=== PATIENT | female | born 1955 | race African-American/Black ===

== ENCOUNTER 2016-11-05 11:19 | Emergency (ER) | payer MEDICAID ==
[~2016-11-05] VITALS: Ht 157.5 cm; Wt 57.6 kg
[2016-11-05 11:42] VITALS: BP 112/60
== END 2016-11-05 16:31 | disposition home or self-care (01) ==
LOC: ER 11:20
DX: G89.29 Other chronic pain (principal); M54.5 Low back pain; Z76.0 Encounter for issue of repeat prescription; M54.9 Dorsalgia, unspecified; M19.90 Unspecified osteoarthritis, unspecified site

== ENCOUNTER 2019-01-13 10:57 | Emergency (ER) | payer MEDICAID ==
[~2019-01-13] VITALS: Ht 157.5 cm; Wt 59.0 kg
[2019-01-13 11:07] VITALS: BP 143/55
== END 2019-01-13 11:47 | disposition home or self-care (01) ==
LOC: ER 10:57
DX: S50.862A Insect bite (nonvenomous) of left forearm, initial encounter (principal); M19.90 Unspecified osteoarthritis, unspecified site; W57.XXXA Bitten or stung by nonvenomous insect and other nonvenomous arthropods, initial encounter; Y93.89 Activity, other specified; Y99.8 Other external cause status; Y92.89 Other specified places as the place of occurrence of the external cause

== ENCOUNTER 2019-05-10 07:06 | Emergency (ER) | payer MEDICAID ==
[~2019-05-10] VITALS: Ht 157.5 cm; Wt 59.4 kg
[2019-05-10 07:10] VITALS: BP 113/69
== END 2019-05-10 10:27 | disposition home or self-care (01) ==
LOC: ER 07:08
DX: H61.22 Impacted cerumen, left ear (principal); H66.92 Otitis media, unspecified, left ear; J45.909 Unspecified asthma, uncomplicated
CPT/HCPCS: 69209

== ENCOUNTER 2019-08-22 08:16 | Emergency (ER) | payer MEDICAID ==
[~2019-08-22] VITALS: Ht 157.5 cm; Wt 57.6 kg
[2019-08-22 08:32] VITALS: BP 116/65
== END 2019-08-22 09:50 | disposition home or self-care (01) ==
LOC: ER 08:16
DX: J06.9 Acute upper respiratory infection, unspecified (principal); R19.7 Diarrhea, unspecified; J45.909 Unspecified asthma, uncomplicated
CPT/HCPCS: 71046; 93005